=== PATIENT | female | born 1990 | race Caucasian/White ===

== ENCOUNTER 2016-12-04 05:25 | Day surgery (SDC) | payer OTHER ==
[~2016-12-04] VITALS: Ht 147.3 cm; Wt 43.5 kg
[2016-12-04] MEDS ORDERED: OMEPRAZOLE (06:29)
[2016-12-04 06:30] VITALS: Ht 147.3 cm; Wt 43.5 kg
[2016-12-04 07:04] VITALS: BP 103/61; PULSE 59; RESP 18
[2016-12-04] MEDS ORDERED: MIDAZOLAM 1 MG/ML 2 ML INJ ONE ×2 (08:11)
[2016-12-04] MEDS ORDERED: FENTAnyl 50 MCG/ML VIAL ONE (08:11)
[2016-12-04 08:25] VITALS: BP 103/85; PULSE 60; RESP 14
--- NOTE | 2016-12-08 11:12 | GILP ---
DATE OF PROCEDURE: 12/04/2016 PROCEDURE PERFORMED: Esophagogastroduodenoscopy and biopsy. SURGEON: Sachin Egan MD PREOPERATIVE DIAGNOSIS: Abdominal pain. POSTOPERATIVE DIAGNOSES: Hiatal hernia. Gastroesophageal reflux disease. Gastritis with erosions. Gastric mucosal biopsies were taken for Helicobacter pylori test. INDICATION: The patient is a 26-year-old female patient, who had upper abdominal pain not responding to therapy. The patient also had loss of appetite and weight loss. The patient was scheduled for endoscopy examination for further evaluation. The procedure and possible complications were well explained to the patient. The patient understood and consented to the procedure. DESCRIPTION OF PROCEDURE: Under influence of fentanyl and Versed, the gastroscope was carefully introduced into the esophagus. Under direct vision it was advanced to the stomach, to the pylorus, to the duodenal bulb, and descending duodenum. FINDINGS: Esophagus: The patient had hiatal hernia and gastroesophageal reflux disease. Stomach: She had gastritis with erosions. Gastric mucosal biopsies were taken for Helicobacter pylori test. Duodenum: Normal. She tolerated the procedure very well. There was no complication from the procedure. At the end of the procedure, she was awake with stable vital signs and she was discharged to the care of family. IMPRESSION: Hiatal hernia. Gastroesophageal reflux disease. Gastritis with erosions. Gastric mucosal biopsies were taken for Helicobacter pylori test. PLAN: Continue omeprazole. Add Zantac 300 mg p.o. at bedtime. Await Helicobacter pylori report. Dictated By: MD AYAKA Lozano/claudy/[email or web address] /Document#: [id number]
--- NOTE | 2016-12-11 08:38 | CONS ---
DATE OF ADMISSION: 12/04/2016 DATE OF CONSULTATION: TYPE OF CONSULTATION: Preoperative gastroenterology. I thank you very much for this kind referral. HISTORY OF PRESENT ILLNESS: Ms. May Rob is a 26-year-old female patient who has been refe rred to me for further evaluation of abdominal pain, change in the bowel habit and rectal bleeding. The patient says she has got epigastric pain associated with nausea. She has been taking omeprazol e without relief of the symptoms. Her appetite has been poor, and she said that she has been losing weight. She is not taking any nonsteroidal anti-inflammatory agents. There is no past history of peptic ulcer disease. There is no history of gallstones. She does not have any fever, chills or ja undice. There is no history of liver disease. The patient also complains of change in the bowel posada bit with constipation and lower abdominal pain. She has rectal bleeding. There is no past history of inflammatory bowel disease or colon neoplasm. She is not a hypertensive or diabetic. She does n ot have any heart disease or lung problem. There is no history of kidney disease. SOCIAL HISTORY: She is a nonsmoker. She does not abuse alcohol. FAMILY HISTORY: Negative for gastrointestinal tract neoplasm. ALLERGIES: SHE SAYS SHE IS ALLERGIC TO BACTRIM. MEDICATIONS: Omeprazole. PHYSICAL EXAMINATION: GENERAL: She is 5 feet tall, and she weighs 92 pounds. HEART: Normal first and second heart sounds. LUNGS: Clear. ABDOMEN: Soft without any distention. Liver and spleen are not palpable. There are no masses. Th ere is no focal tenderness. Normal bowel sounds are heard. CENTRAL NERVOUS SYSTEM: Examination does not reveal any focal neurological deficit. IMPRESSION: 1. Upper abdominal pain and nausea not responding to therapy with omeprazole. 2. The patient also complains of loss of appetite and weight loss. 3. Change in the bowel habit with constipation. 4. Lower abdominal pain. 5. Rectal bleeding. 6. HISTORY OF ALLERGY TO BACTRIM. PLAN: 1. Endoscopic examination to rule out peptic ulcer disease. 2. Colonoscopy at a later date for change in the bowel habit and rectal bleeding. The procedures and possible complications are well explained to the patient. She understands and co nsents to the procedures. I thank you once again. With warmest personal regards, Dictated By: KIARRA MARLEY/MISSY Conf#: [id number] DID#: [id number]
== END 2016-12-04 19:35 | disposition home or self-care (01) ==
LOC: GIL 05:25
PROVIDERS: ATTEND Internal Medicine Gastroenterology
DX: K21.9 Gastro-esophageal reflux disease without esophagitis (principal); K44.9 Diaphragmatic hernia without obstruction or gangrene; K29.70 Gastritis, unspecified, without bleeding; K62.5 Hemorrhage of anus and rectum; R63.4 Abnormal weight loss; Z68.20 Body mass index [BMI] 20.0-20.9, adult; R63.0 Anorexia; K59.00 Constipation, unspecified; Z88.2 Allergy status to sulfonamides
CPT/HCPCS: 43239; 84703; 87081; J2250; J3010; Z7610

== ENCOUNTER 2017-01-15 12:35 | Day surgery (SDC) | payer OTHER ==
[~2017-01-15] VITALS: Ht 142.2 cm; Wt 43.1 kg
[~2017-01-15 12:35] MED LIST: OMEPRAZOLE
[2017-01-15 14:19] VITALS: Ht 142.2 cm; Wt 43.1 kg
[2017-01-15 14:51] VITALS: BP 99/57; PULSE 63; RESP 20
[2017-01-15] MEDS ORDERED: FENTAnyl 50 MCG/ML VIAL ONE (15:10)
[2017-01-15] MEDS ORDERED: MIDAZOLAM 1 MG/ML 2 ML INJ ONE ×3 (15:10)
--- NOTE | 2017-01-15 15:11 | OPPN ---
Date/Time of Note Date/Time of Note DATE: 01/15/17 TIME: 15:09 Operative Report Preoperative Diagnosis Change in bowel habit Lower abdominal pain Rectal bleeding Postoperative Diagnosis 2 small sigmoid polyps were removed Internal hemorrhoids Operation/Procedure Performed Colonoscopy and biopsy Provider: KIARRA KWOK MD Anesthesia Type: moderate sedation Estimated blood loss: none Transfusion Required: no Specimens Sigmoid polyps Grafts/Implants: none Complications: no KIARRA KWOK MD Jan 15, 2017 15:11
--- NOTE | 2017-01-16 02:24 | GILP ---
DATE OF PROCEDURE: 01/15/2017 PREOPERATIVE DIAGNOSES: 1. Change in the bowel habits. 2. Lower abdominal pain. 3. Rectal bleeding. POSTOPERATIVE DIAGNOSES: 1. Colonoscopy all the way to the cecum. 2. Two small sigmoid colon polyps were removed using the biopsy forceps. 3. Internal hemorrhoids. PROCEDURE PERFORMED: Colonoscopy and biopsy. SURGEON: Sachin Egan MD. INDICATIONS FOR PROCEDURE: Ms. Cedrick Rob is a 26-year- old female patient who had change in the bowel habits, lower abdominal pain and rectal bleeding. The patient was scheduled for a colonoscopic examination for further evaluation. The procedure and possible complications were well explained to the patient. She understood and consented to the procedure. DESCRIPTION OF PROCEDURE: Under the influence of fentanyl and Versed the colonoscope was carefully introduced in the rectum and under direct vision it was advanced all the way to the cecum. Findings, the patient had 2 small sigmoid colon polyps and they were removed using the biopsy forceps. She was noted to have internal hemorrhoids. She tolerated the procedure very well, and there was no complication from the procedure. At the end of procedure she was awake with stable vital signs and she was discharged home in care of her family. IMPRESSION: Please see postoperative diagnoses. PLAN: 1. High fiber diet. 2. Anusol HC 2.5 percent cream at h.s. p.r.n. 3. Next screening colonoscopy in 5 years. Dictated By: MD AYAKA Lozano/claudy/ariel /Document#: [id number] CC: Sachin Egan MD;*[facility]*
== END 2017-01-15 15:28 | disposition home or self-care (01) ==
LOC: GIL 12:35
PROVIDERS: ATTEND Internal Medicine Gastroenterology
DX: R19.4 Change in bowel habit (principal); D12.5 Benign neoplasm of sigmoid colon; K64.8 Other hemorrhoids
CPT/HCPCS: 45378; 84703; 88305; J2250; J3010; Z7610

== ENCOUNTER 2017-07-19 20:35 | Emergency (ER) | END 2017-07-20 | disposition home or self-care (01) ==